=== PATIENT | male | born 1975 | race Caucasian/White ===

== ENCOUNTER 2018-07-12 08:58 | Emergency (ER) | payer SELFPAY ==
[~2018-07-12] VITALS: Ht 182.9 cm; Wt 74.8 kg
[2018-07-12 09:02] VITALS: BP 131/89; Ht 182.9 cm; Wt 74.8 kg
== END 2018-07-12 09:15 | disposition left against medical advice (07) ==
LOC: ED 08:58
DX: Z53.21 Procedure and treatment not carried out due to patient leaving prior to being seen by health care provider (principal)